=== PATIENT | female | born 2000 | race Caucasian/White ===

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

== ENCOUNTER 2019-01-31 17:41 | Emergency (ER) | payer OTHER ==
[~2019-01-31] VITALS: Ht 175.3 cm; Wt 83.9 kg
[2019-01-31 19:48] LABS: Source, Urine Clean Catch
[2019-01-31 19:57] LABS: Appearance, Urine Hazy (Clear); Bilirubin, Urine Neg (Neg); Blood, Urine 1+ (Neg); Color, Urine Yellow (P-Yellow); Glucose Qualitative, Urine Neg (Neg); Ketones, Urine Neg (Neg); Leukocyte Esterase, Urine 2+ (Neg); Nitrite, Urine Neg (Neg); Protein, Urine 2+ (Neg); Urobilinogen, Urine NORM (Normal)
[2019-01-31 20:05] LABS: White Blood Cells, Urine 50-100 /hpf (0-5)
[2019-01-31 20:06] LABS: Bacteria Many /hpf; Mucus Light ({null, 0-Heavy}); Squamous Epithelial Cells Many /hpf (Few)
[2019-01-31] MEDS ORDERED: CEPH500 PO (20:24)
[2019-01-31] MEDS ORDERED: Flagyl500 MG PO (20:24)
[2019-01-31] MEDS ORDERED: Pyridium100 MG PO (20:25)
== END 2019-01-31 20:35 | disposition home or self-care (01) ==
LOC: ER 17:41
PROVIDERS: Physician Assistant
DX: N12 Tubulo-interstitial nephritis, not specified as acute or chronic (principal); N76.0 Acute vaginitis; Z88.0 Allergy status to penicillin; Z88.8 Allergy status to other drugs, medicaments and biological substances
CPT/HCPCS: 81001; 81025; 87086; 99283; A9270-GY

== ENCOUNTER 2019-04-26 19:56 | Emergency (ER) | payer OTHER ==
[~2019-04-26] VITALS: Ht 172.7 cm; Wt 83.9 kg
[~2019-04-26 19:56] MED LIST changes: +Flagyl500 MG PO
[2019-04-26 21:08] LABS: BASOPHILS ABSOLUTE AUTO 0.05 K/mm3 (0.00-0.23); BASOPHILS PERCENT AUTO 0 % (0-2); EOSINOPHILS ABSOLUTE AUTO 0.04 K/mm3 (0.00-0.68); EOSINOPHILS PERCENT AUTO 0 % (0-6); Hematocrit 42.9 % (33.0-51.0); Hemoglobin 13.7 g/dL (11.5-16.0); IMMATURE GRAN ABSOLUTE AUTO 0.03 K/mm3 (0.00-0.10); IMMATURE GRAN PERCENT AUTO 0 % (0-1); LYMPHOCYTES ABSOLUTE AUTO 2.36 K/mm3 (0.84-5.20); LYMPHOCYTES PERCENT AUTO 21 % (21-46); MONOCYTES ABSOLUTE AUTO 0.61 K/mm3 (0.16-1.47); MONOCYTES PERCENT AUTO 6 % (4-13); Mean Corpuscular HGB 28.8 pg (26.0-34.0); Mean Corpuscular HGB Conc 31.9 g/dL (31.5-36.5); Mean Corpuscular Volume 90 fL (80-100); Mean Platelet Volume 10.5 fL (9.1-12.4); NEUTROPHILS ABSOLUTE AUTO 8.04 K/mm3 (1.96-9.15); NEUTROPHILS PERCENT AUTO 72 % (41-73); Platelet Count 323 K/mm3 (150-400); RDW Coefficient Variation 13.6 % (11.7-14.2); RDW Standard Deviation 45.3 fL (35.1-46.3); Red Blood Cell Count 4.76 M/mm3 (3.80-5.20); White Blood Cell Count 11.13 K/mm3 (4.00-11.30)
[2019-04-26 21:31] LABS: Alanine Aminotransfer (ALT/SGP 25 U/L (12-78); Albumin, Blood 4.6 g/dL (3.4-5.0); Albumin/Globulin Ratio 1.2 (0.8-1.8); Alk Phos 106 U/L (45-116); Anion Gap 5 mmol/L (6-16); Aspartate Aminotrans (AST/SGOT 18 U/L (12-37); Bilirubin, Total 0.3 mg/dL (0.1-1.0); Blood Urea Nitrogen 10 mg/dL (8-21); Bun/Creatinine Ratio 13.1 (12.0-20.0); CO2, Blood 27 mmol/L (21-32); Calcium, Blood 9.8 mg/dL (8.5-10.1); Chloride, Blood 110 mmol/L (98-108); Creatinine, Blood 0.76 mg/dL (0.40-1.00); Globulin, Blood 3.9 g/dL (2.2-4.0); Glomerular Filtration Rate >60 (60-); Glucose, Blood 99 mg/dL (70-99); Potassium, Blood 4.2 mmol/L (3.5-5.5); Sodium, Blood 142 mmol/L (136-145); Total Protein, Blood 8.5 g/dL (6.4-8.2)
[2019-04-26 22:39] LABS: Source, Urine Clean Catch
[2019-04-26 22:44] LABS: Appearance, Urine Hazy (Clear); Bilirubin, Urine Neg (Neg); Blood, Urine 1+ (Neg); Color, Urine Yellow (P-Yellow); Glucose Qualitative, Urine Neg (Neg); Ketones, Urine Neg (Neg); Leukocyte Esterase, Urine 1+ (Neg); Nitrite, Urine Neg (Neg); Protein, Urine 1+ (Neg); Urobilinogen, Urine NORM (Normal)
[2019-04-26 22:52] LABS: Bacteria Many /hpf; Mucus Heavy ({null, 0-Heavy}); Red Blood Cells, Urine 0-2 /hpf (0-2); Squamous Epithelial Cells Mod /hpf (Few)
[2019-04-26] MEDS ORDERED: IBUP600 PO (23:00)
[2019-04-26] MEDS ORDERED: CEPH500 PO (23:00)
[2019-04-28] MEDS ORDERED: ONDA4ODT MM (21:48)
== END 2019-04-27 00:13 | disposition home or self-care (01) ==
LOC: ER 19:56
PROVIDERS: Emergency Medicine
DX: N12 Tubulo-interstitial nephritis, not specified as acute or chronic (principal)
CPT/HCPCS: 36415; 80053; 81001; 81025; 85025; 87077; 87086; 87186; 96365; 96375; 99283-25; A9270; J0696; J1885; J2405; J7030

== ENCOUNTER 2019-04-28 17:25 | Emergency (ER) | payer OTHER ==
[~2019-04-28] VITALS: Ht 172.7 cm; Wt 81.7 kg
[2019-04-28 18:49] LABS: Alanine Aminotransfer (ALT/SGP 26 U/L (12-78); Albumin, Blood 4.4 g/dL (3.4-5.0); Albumin/Globulin Ratio 1.1 (0.8-1.8); Alk Phos 111 U/L (45-116); Anion Gap 9 mmol/L (6-16); Aspartate Aminotrans (AST/SGOT 25 U/L (12-37); Bilirubin, Total 0.5 mg/dL (0.1-1.0); Blood Urea Nitrogen 9 mg/dL (8-21); Bun/Creatinine Ratio 12.2 (12.0-20.0); CO2, Blood 21 mmol/L (21-32); Calcium, Blood 9.9 mg/dL (8.5-10.1); Chloride, Blood 108 mmol/L (98-108); Creatinine, Blood 0.74 mg/dL (0.40-1.00); Glomerular Filtration Rate >60 (60-); Glucose, Blood 99 mg/dL (70-99); Potassium, Blood 3.9 mmol/L (3.5-5.5); Sodium, Blood 138 mmol/L (136-145); Total Protein, Blood 8.4 g/dL (6.4-8.2)
[2019-04-28 18:52] LABS: BASOPHILS ABSOLUTE AUTO 0.07 K/mm3 (0.00-0.23); BASOPHILS PERCENT AUTO 1 % (0-2); EOSINOPHILS ABSOLUTE AUTO 0.16 K/mm3 (0.00-0.68); EOSINOPHILS PERCENT AUTO 2 % (0-6); Hematocrit 44.6 % (33.0-51.0); Hemoglobin 14.1 g/dL (11.5-16.0); IMMATURE GRAN ABSOLUTE AUTO 0.05 K/mm3 (0.00-0.10); IMMATURE GRAN PERCENT AUTO 1 % (0-1); LYMPHOCYTES ABSOLUTE AUTO 2.52 K/mm3 (0.84-5.20); LYMPHOCYTES PERCENT AUTO 25 % (21-46); MONOCYTES ABSOLUTE AUTO 0.66 K/mm3 (0.16-1.47); MONOCYTES PERCENT AUTO 7 % (4-13); Mean Corpuscular HGB 28.9 pg (26.0-34.0); Mean Corpuscular HGB Conc 31.6 g/dL (31.5-36.5); Mean Corpuscular Volume 91 fL (80-100); NEUTROPHILS ABSOLUTE AUTO 6.65 K/mm3 (1.96-9.15); NEUTROPHILS PERCENT AUTO 66 % (41-73); RDW Coefficient Variation 13.8 % (11.7-14.2); RDW Standard Deviation 46.5 fL (35.1-46.3); Red Blood Cell Count 4.88 M/mm3 (3.80-5.20); White Blood Cell Count 10.11 K/mm3 (4.00-11.30)
[2019-04-28 18:53] LABS: Mean Platelet Volume 10.8 fL (9.1-12.4); Platelet Count 289 K/mm3 (150-400)
[2019-04-28 19:55] LABS: Source, Urine Clean Catch
[2019-04-28 20:00] LABS: Bilirubin, Urine Neg (Neg); Blood, Urine Neg (Neg); Glucose Qualitative, Urine Neg (Neg); Ketones, Urine Neg (Neg); Leukocyte Esterase, Urine Neg (Neg); Nitrite, Urine Neg (Neg); Protein, Urine Neg (Neg); Urobilinogen, Urine NORM (Normal)
[2019-04-28 20:08] LABS: Appearance, Urine Clear (Clear); Color, Urine Yellow (P-Yellow)
[2019-04-28] MEDS ORDERED: ONDA4ODT MM (21:48)
== END 2019-04-28 22:15 | disposition home or self-care (01) ==
LOC: ER 17:25
PROVIDERS: Physician Assistant
DX: N83.201 Unspecified ovarian cyst, right side (principal); Z88.1 Allergy status to other antibiotic agents; Z88.8 Allergy status to other drugs, medicaments and biological substances; Z87.440 Personal history of urinary (tract) infections
CPT/HCPCS: 36415; 76856; 80053; 81003; 83690; 85025; 96365; 96375; 99284-25; J0696; J1170; J3010; J7030

== ENCOUNTER 2019-05-14 18:04 | Emergency (ER) | payer OTHER ==
[~2019-05-14] VITALS: Ht 172.7 cm; Wt 79.4 kg
[2019-05-14 19:25] LABS: Hematocrit 40.4 % (33.0-51.0); Hemoglobin 13.1 g/dL (11.5-16.0); Mean Corpuscular HGB 28.6 pg (26.0-34.0); Mean Corpuscular HGB Conc 32.4 g/dL (31.5-36.5); Mean Corpuscular Volume 88 fL (80-100); Mean Platelet Volume 10.7 fL (9.1-12.4); Platelet Count 306 K/mm3 (150-400); RDW Coefficient Variation 13.9 % (11.7-14.2); RDW Standard Deviation 44.7 fL (35.1-46.3); Red Blood Cell Count 4.58 M/mm3 (3.80-5.20); White Blood Cell Count 14.23 K/mm3 (4.00-11.30)
[2019-05-14] MEDS ORDERED: Zofran8 MG PO (20:25)
== END 2019-05-14 20:36 | disposition home or self-care (01) ==
LOC: ER 18:04
PROVIDERS: Emergency Medicine
DX: O21.1 Hyperemesis gravidarum with metabolic disturbance (principal)
CPT/HCPCS: 36415; 76801; 76817; 84702; 85027; 96361; 96374; 99284-25; A9270-GY; J2405; J7030

== ENCOUNTER 2019-06-03 02:03 | Day surgery (SDC) | payer OTHER ==
[~2019-06-03 02:03] MED LIST changes: +Zofran8 MG PO
--- NOTE | 2019-06-03 13:25 | NUR ---
PT DID NOT SHOW FOR SCHEDULED APPT ON 06/03/19 AT 0930
[2019-06-04] MEDS ORDERED: PHENERGAN25 MG PR (22:14)
[2019-06-04] MEDS ORDERED: ONDA4ODT MM (22:14)
== END 2019-06-03 23:00 | disposition home or self-care (01) ==
LOC: ATC 02:03
DX: O21.1 Hyperemesis gravidarum with metabolic disturbance (principal); Z53.8 Procedure and treatment not carried out for other reasons
CPT/HCPCS: J2405; J7120

== ENCOUNTER 2019-06-04 19:40 | Emergency (ER) | payer OTHER ==
[~2019-06-04] VITALS: Ht 172.7 cm; Wt 81.7 kg
[2019-06-04 20:37] LABS: BASOPHILS ABSOLUTE AUTO 0.04 K/mm3 (0.00-0.23); BASOPHILS PERCENT AUTO 0 % (0-2); EOSINOPHILS ABSOLUTE AUTO 0.12 K/mm3 (0.00-0.68); EOSINOPHILS PERCENT AUTO 1 % (0-6); Hematocrit 37.8 % (33.0-51.0); Hemoglobin 12.1 g/dL (11.5-16.0); IMMATURE GRAN ABSOLUTE AUTO 0.02 K/mm3 (0.00-0.10); IMMATURE GRAN PERCENT AUTO 0 % (0-1); LYMPHOCYTES ABSOLUTE AUTO 2.85 K/mm3 (0.84-5.20); LYMPHOCYTES PERCENT AUTO 27 % (21-46); MONOCYTES ABSOLUTE AUTO 0.75 K/mm3 (0.16-1.47); MONOCYTES PERCENT AUTO 7 % (4-13); Mean Corpuscular HGB 28.7 pg (26.0-34.0); Mean Corpuscular Volume 90 fL (80-100); Mean Platelet Volume 10.4 fL (9.1-12.4); NEUTROPHILS ABSOLUTE AUTO 6.74 K/mm3 (1.96-9.15); NEUTROPHILS PERCENT AUTO 64 % (41-73); Platelet Count 300 K/mm3 (150-400); RDW Coefficient Variation 13.9 % (11.7-14.2); RDW Standard Deviation 45.3 fL (35.1-46.3); Red Blood Cell Count 4.22 M/mm3 (3.80-5.20); White Blood Cell Count 10.52 K/mm3 (4.00-11.30)
[2019-06-04 20:56] LABS: Alanine Aminotransfer (ALT/SGP 23 U/L (12-78); Albumin, Blood 3.6 g/dL (3.4-5.0); Alk Phos 74 U/L (45-116); Anion Gap 7 mmol/L (6-16); Aspartate Aminotrans (AST/SGOT 15 U/L (12-37); Bilirubin, Total 0.2 mg/dL (0.1-1.0); Blood Urea Nitrogen 9 mg/dL (8-21); Bun/Creatinine Ratio 11.5 (12.0-20.0); CO2, Blood 24 mmol/L (21-32); Calcium, Blood 8.9 mg/dL (8.5-10.1); Chloride, Blood 107 mmol/L (98-108); Creatinine, Blood 0.78 mg/dL (0.40-1.00); Globulin, Blood 3.7 g/dL (2.2-4.0); Glomerular Filtration Rate >60 (60-); Glucose, Blood 85 mg/dL (70-99); Potassium, Blood 3.6 mmol/L (3.5-5.5); Sodium, Blood 138 mmol/L (136-145); Total Protein, Blood 7.3 g/dL (6.4-8.2)
[2019-06-04] MEDS ORDERED: ONDA4ODT MM (22:14)
[2019-06-04] MEDS ORDERED: PHENERGAN25 MG PR (22:14)
== END 2019-06-04 22:58 | disposition home or self-care (01) ==
LOC: ER 19:40
PROVIDERS: Physician Assistant
DX: O21.9 Vomiting of pregnancy, unspecified (principal); Z3A.01 Less than 8 weeks gestation of pregnancy
CPT/HCPCS: 36415; 76801; 76817; 80053; 85025; 96361; 96374; 99284-25; A9270-GY; J2405; J7030

== ENCOUNTER 2019-06-05 13:07 | Emergency (ER) | payer OTHER ==
[~2019-06-05] VITALS: Ht 172.7 cm; Wt 81.7 kg
[~2019-06-05 13:07] MED LIST changes: +PHENERGAN25 MG PR
[2019-06-05 15:11] LABS: BASOPHILS ABSOLUTE AUTO 0.03 K/mm3 (0.00-0.23); BASOPHILS PERCENT AUTO 0 % (0-2); EOSINOPHILS ABSOLUTE AUTO 0.11 K/mm3 (0.00-0.68); EOSINOPHILS PERCENT AUTO 1 % (0-6); Hematocrit 41.7 % (33.0-51.0); Hemoglobin 13.3 g/dL (11.5-16.0); IMMATURE GRAN ABSOLUTE AUTO 0.03 K/mm3 (0.00-0.10); IMMATURE GRAN PERCENT AUTO 0 % (0-1); LYMPHOCYTES ABSOLUTE AUTO 2.64 K/mm3 (0.84-5.20); LYMPHOCYTES PERCENT AUTO 26 % (21-46); MONOCYTES PERCENT AUTO 8 % (4-13); Mean Corpuscular HGB 28.7 pg (26.0-34.0); Mean Corpuscular HGB Conc 31.9 g/dL (31.5-36.5); Mean Corpuscular Volume 90 fL (80-100); Mean Platelet Volume 10.9 fL (9.1-12.4); NEUTROPHILS PERCENT AUTO 65 % (41-73); Platelet Count 303 K/mm3 (150-400); RDW Coefficient Variation 14.1 % (11.7-14.2); RDW Standard Deviation 46.3 fL (35.1-46.3); Red Blood Cell Count 4.64 M/mm3 (3.80-5.20); White Blood Cell Count 10.31 K/mm3 (4.00-11.30)
[2019-06-05 15:24] LABS: Anion Gap 7 mmol/L (6-16); Blood Urea Nitrogen 9 mg/dL (8-21); Bun/Creatinine Ratio 14.2 (12.0-20.0); CO2, Blood 23 mmol/L (21-32); Calcium, Blood 9.7 mg/dL (8.5-10.1); Chloride, Blood 109 mmol/L (98-108); Creatinine, Blood 0.63 mg/dL (0.40-1.00); Glomerular Filtration Rate >60 (60-); Glucose, Blood 83 mg/dL (70-99); Potassium, Blood 3.8 mmol/L (3.5-5.5); Sodium, Blood 139 mmol/L (136-145)
== END 2019-06-05 17:59 | disposition home or self-care (01) ==
LOC: ER 13:07
PROVIDERS: Emergency Medicine
DX: O21.0 Mild hyperemesis gravidarum (principal); Z3A.01 Less than 8 weeks gestation of pregnancy
CPT/HCPCS: 36415; 80048; 85025; 96361; 96374; 99283-25; J2405; J7030

== ENCOUNTER → 2020-02-23 | Outpatient (CLI) | payer OTHER | END | disposition home or self-care (01) | LOC: LAB SHORT 19:00 → OLS 19:00 | DX: N13.2 Hydronephrosis with renal and ureteral calculous obstruction (principal) | CPT/HCPCS: 81050 ==

== ENCOUNTER 2020-09-09 21:33 | Emergency (ER) | payer OTHER ==
[~2020-09-09] VITALS: Ht 172.7 cm; Wt 86.2 kg
== END 2020-09-10 00:03 | disposition left against medical advice (07) ==
LOC: ER 21:33
DX: Z53.21 Procedure and treatment not carried out due to patient leaving prior to being seen by health care provider (principal)

== ENCOUNTER → 2020-12-17 | Outpatient (CLI) | payer OTHER | LOC: LAB SHORT 14:45 → LAB 14:45 | PROVIDERS: Registered Nurse Community Health | DX: Z12.4 Encounter for screening for malignant neoplasm of cervix (principal) | CPT/HCPCS: G0123 ==

== ENCOUNTER 2023-03-07 14:45 | Emergency (ER) | payer OTHER ==
[~2023-03-07] VITALS: Ht 175.3 cm; Wt 88.5 kg
[2023-03-07 14:49] VITALS: BP 133/68
== END 2023-03-07 16:13 | disposition home or self-care (01) ==
LOC: ER 14:45
DX: S93.401A Sprain of unspecified ligament of right ankle, initial encounter (principal); W06.XXXA Fall from bed, initial encounter; Z88.0 Allergy status to penicillin; Z88.8 Allergy status to other drugs, medicaments and biological substances; Z79.899 Other long term (current) drug therapy
CPT/HCPCS: 99283-25

== ENCOUNTER 2023-09-08 16:28 | Emergency (ER) | payer OTHER ==
[~2023-09-08] VITALS: Ht 172.7 cm; Wt 90.7 kg
[2023-09-08 16:39] VITALS: BP 143/102
[2023-09-08] MEDS ORDERED: [UNRECOGNIZED DRUG - OTHER] PO (17:18)
[2023-09-08] MEDS ORDERED: Cleocin HCl150 MG PO (17:32)
[2023-09-08] MEDS ORDERED: Vibramycin100 MG PO (17:32)
[2023-09-08] MEDS ORDERED: Diflucan100 MG PO (17:32)
== END 2023-09-08 18:24 | disposition home or self-care (01) ==
LOC: ER 16:28
DX: S51.831A Puncture wound without foreign body of right forearm, initial encounter (principal); Z88.0 Allergy status to penicillin; Z88.1 Allergy status to other antibiotic agents; Z88.5 Allergy status to narcotic agent; Z88.8 Allergy status to other drugs, medicaments and biological substances; W54.0XXA Bitten by dog, initial encounter
CPT/HCPCS: 73090; 99283-25; A9270

== ENCOUNTER 2023-10-08 16:13 | Emergency (ER) | payer OTHER ==
[~2023-10-08] VITALS: Ht 175.3 cm; Wt 95.2 kg
[~2023-10-08 16:13] MED LIST changes: +Cleocin HCl150 MG PO; +Diflucan100 MG PO; +Vibramycin100 MG PO; +[UNRECOGNIZED DRUG - OTHER] PO
[2023-10-08 17:54] LABS: Source, Urine Clean Catch
[2023-10-08 18:02] LABS: Appearance, Urine Bloody (Clear); Bilirubin, Urine Neg (Neg); Blood, Urine Neg (Neg); Color, Urine Yellow (P-Yellow); Glucose Qualitative, Urine Neg (Neg); Ketones, Urine Neg (Neg); Leukocyte Esterase, Urine 1+ (Neg); Nitrite, Urine Pos (Neg); Protein, Urine 1+ (Neg); Urobilinogen, Urine NORM (Normal)
[2023-10-08 18:11] LABS: BASOPHILS ABSOLUTE AUTO 0.05 K/mm3 (0.00-0.23); BASOPHILS PERCENT AUTO 0 % (0-2); EOSINOPHILS ABSOLUTE AUTO 0.08 K/mm3 (0.00-0.68); EOSINOPHILS PERCENT AUTO 1 % (0-6); Hematocrit 40.9 % (33.0-51.0); IMMATURE GRAN ABSOLUTE AUTO 0.03 K/mm3 (0.00-0.10); IMMATURE GRAN PERCENT AUTO 0 % (0-1); LYMPHOCYTES PERCENT AUTO 20 % (21-46); MONOCYTES ABSOLUTE AUTO 0.63 K/mm3 (0.16-1.47); MONOCYTES PERCENT AUTO 5 % (4-13); Mean Corpuscular HGB 27.1 pg (26.0-34.0); Mean Corpuscular HGB Conc 31.8 g/dL (31.5-36.5); Mean Corpuscular Volume 85 fL (80-100); Mean Platelet Volume 10.5 fL (9.1-12.4); NEUTROPHILS ABSOLUTE AUTO 10.41 K/mm3 (1.96-9.15); NEUTROPHILS PERCENT AUTO 74 % (41-73); Platelet Count 354 K/mm3 (150-400); RDW Coefficient Variation 15.7 % (11.7-14.2); Red Blood Cell Count 4.79 M/mm3 (3.80-5.20)
[2023-10-08 18:13] LABS: Bacteria Many /hpf; Red Blood Cells, Urine 0-2 /hpf (0-2); Squamous Epithelial Cells Few /hpf (Few)
[2023-10-08 18:28] LABS: Albumin, Blood 3.7 g/dL (3.4-5.0); Albumin/Globulin Ratio 0.9 (0.8-1.8); Bilirubin, Total 0.2 mg/dL (0.1-1.0); Bun/Creatinine Ratio 14.2 (12.0-20.0); Calcium, Blood 9.3 mg/dL (8.5-10.1); Creatinine, Blood 0.85 mg/dL (0.40-1.00); Globulin, Blood 4.3 g/dL (2.2-4.0); Potassium, Blood 4.2 mmol/L (3.5-5.5)
[2023-10-08 20:30] VITALS: BP 126/67
[2023-10-08] MEDS ORDERED: ONDA4 PO (21:16)
[2023-10-08] MEDS ORDERED: BACTRIM DS TAB1 EAC1 PO (21:18)
== END 2023-10-08 21:43 | disposition home or self-care (01) ==
LOC: ER 16:13
PROVIDERS: Student in an Organized Health Care Education/Training Program
DX: K64.5 Perianal venous thrombosis (principal); Z88.0 Allergy status to penicillin; Z88.1 Allergy status to other antibiotic agents; Z88.5 Allergy status to narcotic agent; Z79.899 Other long term (current) drug therapy
CPT/HCPCS: 46083; 80053; 81001; 81025; 85025; 86850; 86900; 86901; 87077; 87086; 87186; 99283-25; A9270

== ENCOUNTER → 2023-12-13 | Outpatient (CLI) | payer OTHER ==
[~2023-12-13] MED LIST changes: +BACTRIM DS TAB1 EAC1 PO; +ONDA4 PO
== END | disposition home or self-care (01) ==
LOC: LAB SHORT 15:23 → LAB 15:23 → LAB SHORT 12-14 11:52
DX: Z51.81 Encounter for therapeutic drug level monitoring (principal); Z79.899 Other long term (current) drug therapy

== ENCOUNTER 2025-08-28 10:19 | Emergency (ER) | payer OTHER ==
[~2025-08-28] VITALS: Ht 175.3 cm; Wt 81.7 kg
[2025-08-28] MEDS ORDERED: IBUP600 PO (11:31)
[2025-08-28 11:58] VITALS: BP 106/71
== END 2025-08-28 11:59 | disposition home or self-care (01) ==
LOC: ER 10:19
DX: M54.14 Radiculopathy, thoracic region (principal); Z88.1 Allergy status to other antibiotic agents; Z88.5 Allergy status to narcotic agent; Z79.899 Other long term (current) drug therapy; Z87.891 Personal history of nicotine dependence; W10.9XXA Fall (on) (from) unspecified stairs and steps, initial encounter
CPT/HCPCS: 72070; 99283-25; A9270

== ENCOUNTER 2025-10-06 08:01 | Day surgery (SDC) | payer OTHER ==
[~2025-10-06 08:01] MED LIST changes: +Ondansetron HCl 2 MG / ML 2ML Vial IV SCH
[2025-10-06 08:09] VITALS: BP 130/78
[2025-10-06] MEDS ORDERED: PRENATAL TABLE1 EAC2 PO (08:20)
== END 2025-10-06 09:20 | disposition home or self-care (01) ==
LOC: ATC 08:01
DX: O21.9 Vomiting of pregnancy, unspecified (principal); Z88.0 Allergy status to penicillin; Z88.8 Allergy status to other drugs, medicaments and biological substances; Z91.030 Bee allergy status; Z90.49 Acquired absence of other specified parts of digestive tract
CPT/HCPCS: 96361; 96374; J2405; J7120

== ENCOUNTER 2025-10-10 01:29 | Day surgery (SDC) | payer OTHER ==
[~2025-10-10 01:29] MED LIST changes: -Ondansetron HCl 2 MG / ML 2ML Vial IV SCH; +PRENATAL TABLE1 EAC2 PO
[2025-10-10] MEDS ORDERED: Ondansetron HCl 2 MG / ML 2ML Vial IV SCH (06:00)
[2025-10-10 13:40] VITALS: BP 116/73
== END 2025-10-10 14:53 | disposition home or self-care (01) ==
LOC: ATC 01:29
DX: O21.0 Mild hyperemesis gravidarum (principal); O21.9 Vomiting of pregnancy, unspecified; Z88.5 Allergy status to narcotic agent; Z88.1 Allergy status to other antibiotic agents
CPT/HCPCS: 96361; 96374; J2405; J7120

== ENCOUNTER 2025-10-13 01:00 | Day surgery (SDC) | payer OTHER ==
[2025-10-13] MEDS ORDERED: Ondansetron HCl 2 MG / ML 2ML Vial IV SCH (07:15)
[2025-10-13 08:47] VITALS: BP 125/76
== END 2025-10-13 09:31 | disposition home or self-care (01) ==
LOC: ATC 01:00
DX: O21.9 Vomiting of pregnancy, unspecified (principal); Z88.5 Allergy status to narcotic agent; Z88.8 Allergy status to other drugs, medicaments and biological substances; Z91.040 Latex allergy status; Z79.899 Other long term (current) drug therapy
CPT/HCPCS: 96361; 96374; J2405; J7120

== ENCOUNTER 2025-10-17 00:45 | Day surgery (SDC) | payer OTHER ==
[2025-10-17] MEDS ORDERED: Ondansetron HCl 2 MG / ML 2ML Vial IV SCH (07:00)
[2025-10-17 10:10] VITALS: BP 119/84
== END 2025-10-17 11:21 | disposition home or self-care (01) ==
LOC: ATC 00:45
DX: O21.0 Mild hyperemesis gravidarum (principal); Z3A.00 Weeks of gestation of pregnancy not specified; Z88.0 Allergy status to penicillin; Z88.1 Allergy status to other antibiotic agents; Z88.5 Allergy status to narcotic agent; Z91.030 Bee allergy status; Z91.040 Latex allergy status
CPT/HCPCS: 96361; 96374; J2405; J7120

== ENCOUNTER 2025-10-19 07:37 | Day surgery (SDC) | payer OTHER ==
[2025-10-19] MEDS ORDERED: Ondansetron HCl 2 MG / ML 2ML Vial IV SCH (08:25)
[2025-10-19 10:03] VITALS: BP 153/75
== END 2025-10-19 11:11 | disposition home or self-care (01) ==
LOC: ATC 07:37
DX: O21.9 Vomiting of pregnancy, unspecified (principal); Z88.0 Allergy status to penicillin; Z88.5 Allergy status to narcotic agent; Z88.8 Allergy status to other drugs, medicaments and biological substances; Z91.030 Bee allergy status; Z90.49 Acquired absence of other specified parts of digestive tract
CPT/HCPCS: 96361; 96374; J2405; J7120

== ENCOUNTER 2025-10-24 00:35 | Day surgery (SDC) | payer OTHER ==
[2025-10-24] MEDS ORDERED: Ondansetron HCl 2 MG / ML 2ML Vial IV SCH (06:00)
[2025-10-24 10:10] VITALS: BP 130/83
== END 2025-10-24 11:15 | disposition home or self-care (01) ==
LOC: ATC 00:35
DX: O21.9 Vomiting of pregnancy, unspecified (principal); Z88.0 Allergy status to penicillin; Z88.8 Allergy status to other drugs, medicaments and biological substances; Z91.030 Bee allergy status
CPT/HCPCS: 96361; 96374; J2405; J7120

== ENCOUNTER 2025-10-29 00:37 | Day surgery (SDC) | payer OTHER ==
[2025-10-29] MEDS ORDERED: Ondansetron HCl 2 MG / ML 2ML Vial IV SCH (07:00)
[2025-10-29 10:02] VITALS: BP 125/87
== END 2025-10-29 11:14 | disposition home or self-care (01) ==
LOC: ATC 00:37
DX: O21.0 Mild hyperemesis gravidarum (principal); Z88.1 Allergy status to other antibiotic agents; Z88.5 Allergy status to narcotic agent; Z88.8 Allergy status to other drugs, medicaments and biological substances; Z91.030 Bee allergy status; Z91.040 Latex allergy status
CPT/HCPCS: 96361; 96374; J2405; J7120